=== PATIENT | male | born 1990 | race Caucasian/White ===

== ENCOUNTER 2018-10-12 12:17 | Emergency (ER) | payer BC ==
[~2018-10-12] VITALS: Ht 167.6 cm; Wt 70.5 kg
[~2018-10-12 12:17] MED LIST: BACTRIM DS1 TAB PO; DEPO-MEDROL80 MG/ML IM; DOXYCYC MONO100 M2 PO; HYDROXYZ HCL25 MG PO; KEFLEX500 MG PO; LORTAB 1010 MG PO; LORTAB5; MEDDOSEPAK PO; SILVADENE1 % EX; TRIAMCINOLON0.11 EX
[2018-10-12] MEDS ORDERED: DULOXETINE HCL60 MG PO (12:58)
[2018-10-12 13:05] VITALS: BP 153/74
== END 2018-10-12 13:05 | disposition home or self-care (01) | DRG 563 ==
LOC: ED 12:17
DX: S83.91XA Sprain of unspecified site of right knee, initial encounter (principal); X50.0XXA Overexertion from strenuous movement or load, initial encounter; Y93.89 Activity, other specified
CPT/HCPCS: L1830

== ENCOUNTER 2020-01-22 18:01 | Emergency (ER) | payer BC ==
[~2020-01-22] VITALS: Ht 167.6 cm; Wt 85.0 kg
[~2020-01-22 18:01] MED LIST changes: +DULOXETINE HCL60 MG PO
[2020-01-22] MEDS ORDERED: TRIAMCINOLON0.13 EX (18:17)
[2020-01-22] MEDS ORDERED: EFFEXOR XR75 MG/CAP PO (18:18)
[2020-01-22 19:02] LABS: HEMOGLOBIN 15.7 g/dl (14.0-18.0); IMMATURE GRANULOCYTES 0.4 % (0.0-5.0); MEAN CORPUSCULAR HGB 29.2 pG CALC (26.0-32.0); NEUT# 7.04 thou/uL (1.82-7.42); RED BLOOD COUNT 5.37 mill/uL (4.70-6.10); RED CELL DISTRI WIDTH 12.8 % (11.5-15.5)
[2020-01-22 19:05] LABS: HEMATOCRIT 46.2 % (39.0-50.0)
[2020-01-22 19:08] LABS: ALKALINE PHOSPHATASE 98 u/l (38-126); ANION GAP 18 (6-22 (CALC)); BUN 24 mg/dL (9-20); BUN/CREATININE RATIO 23 (12-20 (CALC)); CARBON DIOXIDE 26 mmol/l (22-30); CHLORIDE 97 mmol/l (95-108); GFR > 60 ML/MIN (>=60 (CALC)); GFR FOR AFR.AMER. > 60 ML/MIN (>=60 (CALC)); POTASSIUM 4.7 mmol/l (3.5-5.1); SGOT/AST 41 u/l (17-59); SODIUM 136 mmol/l (137-146)
[2020-01-22 19:11] LABS: BILIRUBIN, TOTAL 1.2 mg/dL (0.0-1.4); TOTAL PROTEIN 8.8 g/dL (6.3-8.2)
[2020-01-22 19:12] LABS: ALBUMIN 5.3 g/dL (3.2-5.0)
[2020-01-22 19:20] LABS: MYOGLOBIN 50 ng/mL (0 - 121)
[2020-01-22 20:30] VITALS: BP 126/68
[2020-01-22 20:59] LABS: URINE BILIRUBIN - DIPSTICK NEGATIVE (NEGATIVE); URINE BLOOD DIPSTICK NEGATIVE (NEGATIVE); URINE COLOR YELLOW; URINE GLUCOSE - DIPSTICK NEGATIVE (NEGATIVE); URINE KETONE 15 mg/dL (NEGATIVE); URINE LEUK ESTERASE NEGATIVE (NEGATIVE); URINE NITRITE - DIPSTICK NEGATIVE (Negative); URINE PH 5.5 (4.5-8.0); URINE PROTEIN - DIPSTICK NEGATIVE (NEG-TRACE); URINE SPECIFIC GRAVITY 1.025; URINE UROBILINOGEN - DIPSTICK 0.2 E.U./dL (0.2)
== END 2020-01-22 21:44 | disposition home or self-care (01) | DRG 641 ==
LOC: ED 18:01
PROVIDERS: Emergency Medicine
DX: E86.0 Dehydration (principal)